=== PATIENT | female | born 1980 | race Caucasian/White ===

== ENCOUNTER 2016-12-19 00:20 | Inpatient (IN) | payer OTHER ==
[2016-12-19] VITALS (51 sets, daily range): BP systolic 101–129; BP diastolic 62–89; PULSE 79–128; RESP 16–18; TEMP 98–98.3
[~2016-12-19] VITALS: Ht 162.6 cm; Wt 68.9 kg
[~2016-12-19 00:20] MED LIST: COLA100C PO; PERC5TAB12 PO; PRENCAP6 PO
[2016-12-19] MEDS ORDERED: MINERAL OIL 10 ML VIAL TOPICAL PRN (01:15)
[2016-12-19] MEDS ORDERED: OXYTOCIN 30 UNITS 500ML PREMIX IV ONE (01:15)
[2016-12-19] MEDS ORDERED: LACTATED RINGER'S 1000 ML IV SCH (01:15)
[2016-12-19] MEDS ORDERED: CLINDAMYCIN 900 MG in NS 100 ML IV SCH (01:15)
[2016-12-19] MEDS ORDERED: NS 1000 ML IV PRN (01:15)
[2016-12-19] MEDS ORDERED: NS 500 ML BOLUS IV PRN (01:15)
[2016-12-19] MEDS ORDERED: LIDOCAINE HCL 1% 50 ML VIAL I-DERMAL PRN (01:15)
[2016-12-19] MEDS ORDERED: LACTATED RINGER'S 1000 ML BOLUS IV PRN (01:15)
[2016-12-19] MEDS ORDERED: CITRIC ACID-SODIUM CITRATE LIQ 30 ML UDC PO SCH (01:15)
[2016-12-19] MEDS ORDERED: LIDOCAINE HCL 1% 50 ML VIAL INFIL PRN (01:15)
[2016-12-19 01:22] LABS: AUTOMATED NEUTROPHIL # 6.7 TH/MM3 (1.8-7.7); BASOPHIL % 0.2 % (0.0-2.0); EOSINOPHIL % 0.2 % (0.0-4.0); HEMATOCRIT 27.9 % (35.0-46.0); LYMPH % 23.2 % (9.0-44.0); LYMPHOCYTE # 2.3 TH/MM3 (1.0-4.8); MEAN CELL VOLUME 70.5 FL (80.0-100.0); MEAN CORPUSCULAR HEMOGLOBIN 22.3 PG (27.0-34.0); MEAN CORPUSCULAR HGB CONC 31.6 % (32.0-36.0); MONO % 8.6 % (0.0-8.0); NEUT % 67.8 % (16.0-70.0); PLATELET COUNT 265 TH/MM3 (150-450); RED BLOOD COUNT 3.96 MIL/MM3 (4.00-5.30); RED CELL DISTRIBUTION WIDTH 17.5 % (11.6-17.2); WHITE BLOOD COUNT 9.8 TH/MM3 (4.0-11.0)
[2016-12-19 01:27] LABS: BLOOD, URINE NEG (NEG); GLUCOSE,URINE 150 mg/dL (NEG); KETONE, URINE TRACE mg/dL (NEG); MUCUS URINE FEW /lpf (OCC); NITRITE,URINE NEG (NEG); PH, URINE 5.5 (5.0-8.5); SQUAMOUS EPITHELIAL CELL URINE 2 /hpf (0-5); URINE COLOR YELLOW (YELLW/STRAW)
[2016-12-19 01:28] LABS: COMMENT (UR) CULT NOT INDICATED; CULTURE IF INDICATED CULT NOT INDICATED
[2016-12-19 01:36] LABS: HEMO FLAGS AUTO DIFF
[2016-12-19] MEDS ORDERED: fentaNYL 2MCG-BUPIV 0.125% INJ 100 ML ONE (01:49)
[2016-12-19 01:53] LABS: BANDS 1 % (0-6); BASOPHILS 1 % (0-2); CORRECTED NUCLEATED RBC 1 /100 WBC (0-0); EOSINOPHILS 1 % (0-4); METAMYELOCYTES 2 % (0-1); NEUTROPHIL # MANUAL DIFF 5.9 TH/MM3 (1.8-7.7); POLYS (SEG NEUTROPHILS) 57 % (16-70); WBC DIFF SAMPLE 100
[2016-12-19 01:54] LABS: OVALOCYTES 1+ (NORMAL); PLATELET ESTIMATE SMEAR NORMAL (NORMAL); PLATELET MORPHOLOGY NORMAL (NORMAL); SCAN/DIFF FINAL DIFF MANUAL
[2016-12-19] MEDS ORDERED: fentaNYL 2MCG-BUPIV 0.125% 100 ML EPIDURAL SCH (02:45)
[2016-12-19] MEDS ORDERED: NO SYSTEM NARCOTICS PRN (02:45)
[2016-12-19] MEDS ORDERED: DO NOT ADMINISTER ANTICOAGULANTS PRN (02:45)
[2016-12-19] MEDS ORDERED: ePHEDrine/NS 25 MG/5 ML SYR IV PRN (02:45)
[2016-12-19] MEDS ORDERED: OXYTOCIN 30 UNITS/NS 500ML PREMIX IV SCH (04:00)
[2016-12-19] MEDS ORDERED: LIDOCAINE HCL 1% 50 ML VIAL ONE (05:13)
[2016-12-19] MEDS ORDERED: BENZOCAINE 20% TOPICAL SPRAY 60 ML CAN TOPICAL PRN (06:00)
[2016-12-19] MEDS ORDERED: SODIUM CHLORIDE 0.9% FLUSH 10 ML FLUSH IV FLUSH PRN (06:00)
[2016-12-19] MEDS ORDERED: oxyCODONE/ACETAMINOPHEN 5 MG/325 MG TAB PO PRN (06:00)
[2016-12-19] MEDS ORDERED: ALUMINUM/MAGNESIUM/SIMETH 30 ML CUP PO PRN (06:00)
[2016-12-19] MEDS ORDERED: ONDANSETRON ODT 4 MG TAB PO PRN (06:00)
[2016-12-19] MEDS ORDERED: WITCH HAZEL 50%/GLYCERIN 12.5% 40 PAD JAR TOPICAL PRN (06:00)
[2016-12-19] MEDS ORDERED: ZOLPIDEM TARTRATE 5 MG TAB PO PRN (06:00)
--- NOTE | 2016-12-19 07:01 | MH ---
cc: COLLEEN PRITCHETT DATE OF ADMISSION: 12/19/2016 ADMISSION DIAGNOSES 1. at term. 2. Active labor. HISTORY OF PRESENT ILLNESS The patient 36-year-old white female, para 2-0-0-2 with an LMP of 03/26/2016, EDC of 12/31/2016. Her course has been benign. She had normal panorama testing. She is positive GBS. She has had increasing contractions throughout the evening and presented to the Center of 5 cm, intact, is now admitted for delivery. PAST MEDICAL HISTORY PAST SURGERIES None. MEDICATIONS Vitamins. ALLERGIES PENICILLIN. SERIOUS MEDICAL ILLNESSES History of renal stones. OB HISTORY Two previous term vaginal deliveries. 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 Alcohol, tobacco and drugs are none. PHYSICAL EXAMINATION GENERAL: This is a well-nourished, well-developed female. VITAL SIGNS: Stable. HEENT: Exam is normal. CHEST: Clear. HEART: Regular rate. ABDOMEN: . EFW is 3100 grams. PELVIC: Cervix is 5 cm, intact. PLAN She is to receive clindamycin prophylaxis, epidural. Anticipate vaginal delivery. Colleen Pritchett MD JAW/SSB /1:57 AM /6:55 AM
[2016-12-19] MEDS ORDERED: SODIUM CHLORIDE 0.9% FLUSH 10 ML FLUSH IV FLUSH SCH (09:00)
[2016-12-19] MEDS: DOCUSATE SODIUM 50 MG/SENNA 8.6 MG TAB PO PRN ×2 (09:43→22:21)
[2016-12-19] MEDS: IBUPROFEN 600 MG TAB PO PRN ×3 (09:44→22:22)
[2016-12-19] MEDS: ACETAMINOPHEN 325 MG TAB PO PRN ×3 (09:44→22:21)
[2016-12-19] MEDS ORDERED: DIPHTH/TETANUS/ACEL PERTUSSIS (BOOSTER) 0.5 ML VIAL/PFS IM ONE (16:00)
[2016-12-19] MEDS ORDERED: MEASLES, MUMPS, RUBELLA VACCINE 0.5 ML VIAL SQ ONE (16:00)
[2016-12-20] MEDS: ACETAMINOPHEN 325 MG TAB PO PRN ×4 (04:53→20:32)
[2016-12-20] MEDS: IBUPROFEN 600 MG TAB PO PRN ×4 (04:53→22:48)
[2016-12-20 06:56] LABS: AUTOMATED NEUTROPHIL # 9.1 TH/MM3 (1.8-7.7); BASOPHIL % 0.3 % (0.0-2.0); EOSINOPHIL # 0.1 TH/MM3 (0-0.4); EOSINOPHIL % 0.5 % (0.0-4.0); HEMATOCRIT 23.5 % (35.0-46.0); LYMPH % 20.5 % (9.0-44.0); LYMPHOCYTE # 2.6 TH/MM3 (1.0-4.8); MEAN CELL VOLUME 70.5 FL (80.0-100.0); MEAN CORPUSCULAR HEMOGLOBIN 21.8 PG (27.0-34.0); MONO % 7.1 % (0.0-8.0); NEUT % 71.6 % (16.0-70.0); PLATELET COUNT 216 TH/MM3 (150-450); RED BLOOD COUNT 3.33 MIL/MM3 (4.00-5.30); RED CELL DISTRIBUTION WIDTH 17.4 % (11.6-17.2); WHITE BLOOD COUNT 12.8 TH/MM3 (4.0-11.0)
[2016-12-20 07:05] LABS: HEMO FLAGS AUTO DIFF
[2016-12-20 09:41] LABS: ACANTHOCYTES OCC (NORMAL); OVALOCYTES 1+ (NORMAL); SCAN/DIFF AUTO DIFF CONFIRMED
[2016-12-20] MEDS: DOCUSATE SODIUM 50 MG/SENNA 8.6 MG TAB PO PRN (15:38)
[2016-12-20] MEDS: oxyCODONE/ACETAMINOPHEN 5 MG/325 MG TAB PO PRN (23:44)
[2016-12-21] MEDS: ACETAMINOPHEN 325 MG TAB PO PRN (03:56)
[2016-12-21] MEDS: IBUPROFEN 600 MG TAB PO PRN (05:46)
[2016-12-21] MEDS ORDERED: OXYC1TAB63 PO (07:15)
--- NOTE | 2016-12-21 07:15 | HHI.DCPOC ---
Discharge Care Plan Report Symptoms to Your Doctor -Temperature above 100.5 degrees -Redness, of incision or excessive or foul smelling drainage -Unusual pain or calf pain -Increased vaginal bleeding -Painful or difficulty urinating -Feelings of extreme sadness or anxiety after 2 weeks Goals to Promote Your Health * To prevent worsening of your condition and complications * To maintain your health at the optimal level Directions to Meet Your Goals Take your medications as prescribed Follow your dietary instruction Follow activity as directed Ensure plenty of rest for recovery Drink fluids for hydration Keep your appointments as scheduled Take your immunizations and boosters as scheduled If your symptoms worsen call your PCP, if no PCP go to Urgent Care Center or Emergency Room Smoking is Dangerous to Your Health. Avoid second hand smoke Call the 24-hour crisis hotline for domestic abuse at Evan Khalil MD Dec 21, 2016 07:15
[2016-12-21] MEDS: oxyCODONE/ACETAMINOPHEN 5 MG/325 MG TAB PO PRN (08:07)
--- NOTE | 2016-12-26 07:56 | MD ---
cc: COLLEEN PRITCHETT ADMISSION DATE: 12/19/2016 DISCHARGE DATE: 12/21/2016 ADMITTING DIAGNOSIS Term , active labor. DISCHARGE DIAGNOSIS Term , active labor, delivered. HISTORY OF PRESENT ILLNESS A 36-year-old white female, para 2-0-0-2, EDC 12/31/2016. Her course was benign. Her GBS culture was positive. HOSPITAL COURSE She was admitted in active labor on the morning of 12/19/2016. She received epidural anesthesia and one dose of IV clindamycin and progressed to a spontaneous vaginal delivery on the morning of 12/19/2016, a viable vigorous female over a second-degree midline tear. The baby weighed 8 pounds 6 ounces, Apgars 9 and 9. she did well and was discharged home in excellent condition on 12/21/2016. She was advised NPV, light activity, return to see me in 6 weeks. She is to call for abnormal pain, bleeding, temperature, signs or infection or depression. She was given a script for Percocet 5, one p.o. q.4h., #20. MD TON Morgan/BRAVO /7:23 AM /7:55 AM
== END 2016-12-21 12:29 | disposition home or self-care (01) | DRG 775 ==
LOC: HOBED 00:20 → H2EB 00:50 → H1EA 07:57
PROVIDERS: ADMIT Obstetrics & Gynecology; ATTEND Obstetrics & Gynecology
PROC: 10E0XZZ Delivery of Products of Conception, External Approach (ICD-10-PCS; principal; 2016-12-19)
PROC: 0KQM0ZZ Repair Perineum Muscle, Open Approach (ICD-10-PCS; 2016-12-19)
PROC: 00HU33Z Insertion of Infusion Device into Spinal Canal, Percutaneous Approach (ICD-10-PCS; 2016-12-19)
PROC: 3E0R3CZ (ICD-10-PCS; 2016-12-19)
DX: O99.824 Streptococcus B carrier state complicating childbirth (principal); O09.529 Supervision of elderly multigravida, unspecified trimester; Z3A.00 Weeks of gestation of pregnancy not specified; Z37.0 Single live birth; O70.1 Second degree perineal laceration during delivery; Z88.0 Allergy status to penicillin; Z87.442 Personal history of urinary calculi
CPT/HCPCS: 81001; 84112; 85007; 85025; 85027; 99285; J2590; J7120